=== PATIENT | female | born 2000 | race Two or more races ===

== ENCOUNTER 2023-03-14 22:19 | Emergency (ER) | payer BC, OTHER ==
[~2023-03-14] VITALS: Ht 160 cm; Wt 60.5 kg
[2023-03-14 23:20] VITALS: BP 113/64; PULSE 87; RESP 16; TEMP 98.7; O2SAT 99
[2023-03-14] MEDS ORDERED: TETANUS-DIPTH-ACEL PERTUSSIS 0.5ML SYR Tdap IM ONE (23:30)
[2023-03-14] MEDS ORDERED: RABIES VACCINE (PCEC)/PF 2.5 UNITS IM ONE ×2 (23:30→23:50)
[2023-03-14] MEDS ORDERED: RABIES IMMUNE GLOBULIN 300unit/2ml (150unit/ml) INJ IM ONE (23:30)
[2023-03-14] MEDS ORDERED: AUG875T PO (23:37)
== END 2023-03-15 01:03 | disposition home or self-care (01) ==
LOC: ER 22:19
DX: S61.210A Laceration without foreign body of right index finger without damage to nail, initial encounter (principal); Z79.899 Other long term (current) drug therapy; W54.0XXA Bitten by dog, initial encounter; Y93.01 Activity, walking, marching and hiking; Y92.488 Other paved roadways as the place of occurrence of the external cause; Y99.8 Other external cause status
CPT/HCPCS: 90471; 90472; 90675; 90715